=== PATIENT | male | born 1950 | race Caucasian/White ===

== ENCOUNTER 2018-09-03 22:51 | Inpatient (IN) | payer MEDICARE, OTHER ==
[~2018-09-03] VITALS: Ht 185.4 cm; Wt 88.5 kg
[2018-09-03] MEDS ORDERED: GLUC1KIT IJ (23:26)
[2018-09-03] MEDS ORDERED: ASPI81TA31 PO (23:26)
[2018-09-03] MEDS ORDERED: NICO-672 TD (23:26)
[2018-09-03] MEDS ORDERED: ENOX40DI SQ (23:26)
[2018-09-03] MEDS ORDERED: CARV3.122 PO (23:26)
[2018-09-03] MEDS ORDERED: ALBU2.5V38 IH (23:26)
[2018-09-03] MEDS ORDERED: ACET-2154 PO (23:26)
[2018-09-03] MEDS ORDERED: HYDR-3326 PO (23:26)
[2018-09-03] MEDS ORDERED: INSU100I19 SQ (23:26)
[2018-09-03] MEDS ORDERED: DEXT38GE12 PO (23:26)
[2018-09-03] MEDS ORDERED: ATOR20TA PO (23:26)
[2018-09-03] MEDS ORDERED: [UNRECOGNIZED DRUG - CODE] IV (23:26)
[2018-09-03] MEDS ORDERED: LORA1TAB PO (23:26)
[2018-09-03] MEDS ORDERED: INSU100I14 SQ ×2 (23:26)
[2018-09-03] MEDS ORDERED: MAG HYDROX/AL HYDROX/SIMETH 30 ML LIQUID UDC PO PRN (23:45)
[2018-09-03] MEDS ORDERED: MAGNESIUM HYDROXIDE 30 ML LIQUID UDC PO PRN (23:45)
[2018-09-03] MEDS ORDERED: INSULIN REGULAR, HUMAN 300 UNIT/3 ML VIAL ONE (23:56)
[2018-09-04] MEDS ORDERED: INSULIN REGULAR, HUMAN 300 UNIT/3 ML VIAL SQ ONE
[2018-09-04 00:20] VITALS: BP 149/86
[2018-09-04] MEDS ORDERED: ZOLPIDEM 5 MG TABLET PO PRN (01:15)
[2018-09-04] MEDS: LORAZEPAM 0.5 MG TABLET PO PRN ×2 (02:25→16:19)
[2018-09-04 02:46] LABS: *BILIRUBIN,URIN NEGATIVE (NEGATIVE); *CLARITY,URINE CLEAR (CLEAR); *COLOR,URINE YELLOW (YELLOW); *KETONES,URINE NEGATIVE (NEGATIVE); LEUKOCYTE ESTERASE ,URINE NEGATIVE (NEGATIVE); NITRITE, URINE NEGATIVE (NEGATIVE); PH,URINE 5.5 (5.0-8.0); UGLUCOSE NEGATIVE (NEGATIVE)
[2018-09-04 02:54] LABS: *BLOOD, URINE TRACE (NEGATIVE)
[2018-09-04 02:55] LABS: BACTERIA,URINE NONE SEEN /HPF (NONE SEEN); SQUAMOUS EPITHELIAL CELL,UR FEW /HPF (NONE SEEN); WBC,URINE 0-3 /HPF (0-3)
[2018-09-04] MEDS ORDERED: DEXTROSE 50% 50 ML DISP.SYRIN IV PRN (06:45)
[2018-09-04] MEDS ORDERED: HYDROCODONE/APAP 5-325MG TABLET PO PRN (06:45)
[2018-09-04] MEDS: BLOOD SUGAR DIAGNOSTIC 1 EACH STRIP VI SCH ×4 (06:50→20:50)
[2018-09-04 07:08] LABS: CREATININE 1.1 mg/dL (0.6-1.3); POTASSIUM 5.1 mmol/L (3.5-5.1)
[2018-09-04 07:30] VITALS: BP 128/70
[2018-09-04 07:39] LABS: BILIRUBIN,TOTAL 0.6 mg/dL (0.2-1.0); MAGNESIUM 1.9 mg/dL (1.8-2.4); PHOSPHOROUS 3.7 mg/dL (2.5-4.9); TOTAL PROTEIN, SERUM 6.8 g/dL (6.4-8.2)
[2018-09-04] MEDS: INSULIN REGULAR, HUMAN 300 UNIT/3 ML VIAL SQ PRN ×3 (08:47→20:51)
[2018-09-04 09:00] LABS: BASOPHILS % (AUTO) 0.3 % (0.0-2.0); EOSINOPHILS # (AUTO) 0.7 K/uL (0.0-0.7); HEMATOCRIT 29.9 % (36.7-47.1); HEMOGLOBIN 9.9 g/dL (12.5-16.3); LYMPHOCYTES # (AUTO) 2.6 K/uL (20.0-40.0); LYMPHOCYTES % (AUTO) 32.2 % (20.5-51.5); MEAN CORPUSCULAR HEMOGLOBIN 28.5 uug (23.8-33.4); MEAN CORPUSCULAR HGB CONC 33 g/dL (32.5-36.3); MONOCYTES # (AUTO) 0.9 K/uL (2.0-10.0); MONOCYTES % (AUTO) 11.6 % (0.0-11.0); NEUTROPHILS # (AUTO) 3.7 K/uL (1.8-8.9); NEUTROPHILS % (AUTO) 46.9 % (38.5-71.5); PLATELET COUNT (AUTO) 225 K/uL (152-348); RED BLOOD CELL COUNT(AUTO) 3.48 MIL/uL (4.06-5.63)
[2018-09-04] MEDS ORDERED: NICOTINE 21 MG/24HR PATCH TD SCH (09:00)
[2018-09-04] MEDS: LISINOPRIL 5 MG TABLET PO SCH (09:20)
[2018-09-04] MEDS: ASPIRIN 81 MG TAB.CHEW PO SCH (09:20)
[2018-09-04] MEDS: NICOTINE 14 MG/24HR PATCH TD SCH (09:21)
[2018-09-04] MEDS: CARVEDILOL 3.125 MG TABLET PO SCH ×2 (09:21→17:03)
[2018-09-04] MEDS: INSULIN DETEMIR 300 UNIT/3 ML CARTRIDGE SQ SCH ×2 (09:23→20:53)
[2018-09-04] MEDS: ESCITALOPRAM OXALATE 10 MG TABLET PO SCH (13:58)
[2018-09-04 16:48] VITALS: BP 134/72
[2018-09-04] MEDS: ALBUTEROL SULFATE 2.5 MG/3 ML NEBU NEB PRN ×2 (19:10→22:31)
[2018-09-04 20:00] VITALS: BP 135/66
[2018-09-04] MEDS: QUETIAPINE FUMARATE 25 MG TABLET PO SCH (20:33)
[2018-09-04] MEDS: ATORVASTATIN 20 MG TABLET PO SCH (20:35)
[2018-09-05] MEDS: LORAZEPAM 0.5 MG TABLET PO PRN ×2 (00:50→22:24)
[2018-09-05] MEDS: BLOOD SUGAR DIAGNOSTIC 1 EACH STRIP VI SCH ×4 (06:31→20:39)
[2018-09-05 07:30] VITALS: BP 118/55
[2018-09-05] MEDS ORDERED: INSULIN LISPRO 300 UNIT/3 ML VIAL SQ SCH (07:30)
[2018-09-05] MEDS: ESCITALOPRAM OXALATE 10 MG TABLET PO SCH (08:49)
[2018-09-05] MEDS: LISINOPRIL 5 MG TABLET PO SCH (08:50)
[2018-09-05] MEDS: ASPIRIN 81 MG TAB.CHEW PO SCH (08:50)
[2018-09-05] MEDS: CARVEDILOL 3.125 MG TABLET PO SCH ×2 (08:50→17:03)
[2018-09-05] MEDS: NICOTINE 14 MG/24HR PATCH TD SCH (08:50)
[2018-09-05] MEDS: INSULIN DETEMIR 300 UNIT/3 ML CARTRIDGE SQ SCH ×2 (08:55→20:34)
[2018-09-05] MEDS: INSULIN REGULAR, HUMAN 300 UNIT/3 ML VIAL SQ PRN ×3 (11:32→20:35)
[2018-09-05] MEDS: INSULIN REGULAR, HUMAN 300 UNIT/3 ML VIAL SQ SCH ×2 (11:34→16:46)
[2018-09-05] MEDS: HYDROCODONE/APAP 10-325 MG TABLET PO PRN ×2 (12:40→20:38)
[2018-09-05] MEDS: ONDANSETRON ODT 4 MG TAB.RAPDIS SL PRN ×2 (12:40→22:46)
[2018-09-05 16:45] VITALS: BP 121/62
[2018-09-05 20:04] VITALS: BP 129/72
[2018-09-05] MEDS: QUETIAPINE FUMARATE 25 MG TABLET PO SCH (20:32)
[2018-09-05] MEDS: ATORVASTATIN 20 MG TABLET PO SCH (20:53)
[2018-09-06] MEDS: BLOOD SUGAR DIAGNOSTIC 1 EACH STRIP VI SCH ×4 (06:43→20:26)
[2018-09-06] MEDS: INSULIN REGULAR, HUMAN 300 UNIT/3 ML VIAL SQ SCH ×3 (07:14→16:53)
[2018-09-06 07:30] VITALS: BP 133/75
[2018-09-06] MEDS: LISINOPRIL 5 MG TABLET PO SCH (08:34)
[2018-09-06] MEDS: CARVEDILOL 3.125 MG TABLET PO SCH ×2 (08:35→17:26)
[2018-09-06] MEDS: ESCITALOPRAM OXALATE 10 MG TABLET PO SCH (08:35)
[2018-09-06] MEDS: ASPIRIN 81 MG TAB.CHEW PO SCH (08:35)
[2018-09-06] MEDS: NICOTINE 14 MG/24HR PATCH TD SCH (08:35)
[2018-09-06] MEDS: INSULIN DETEMIR 300 UNIT/3 ML CARTRIDGE SQ SCH ×2 (08:37→20:24)
[2018-09-06] MEDS ORDERED: DULOXETINE 60 MG CAPSULE.DR PO SCH (09:00)
[2018-09-06] MEDS: DULOXETINE 30 MG CAPSULE.DR PO SCH (09:58)
[2018-09-06] MEDS: INSULIN REGULAR, HUMAN 300 UNIT/3 ML VIAL SQ PRN ×3 (12:02→20:23)
[2018-09-06] MEDS: LORAZEPAM 0.5 MG TABLET PO PRN ×2 (12:31→22:50)
[2018-09-06 15:35] VITALS: BP 132/74
[2018-09-06 19:54] VITALS: BP 122/77
[2018-09-06] MEDS: ONDANSETRON ODT 4 MG TAB.RAPDIS SL PRN (19:55)
[2018-09-06] MEDS: HYDROCODONE/APAP 10-325 MG TABLET PO PRN (19:55)
[2018-09-06] MEDS: ATORVASTATIN 20 MG TABLET PO SCH (20:39)
[2018-09-06] MEDS: QUETIAPINE FUMARATE 25 MG TABLET PO SCH (21:19)
[2018-09-06] MEDS: ACETAMINOPHEN 325 MG TABLET PO PRN (22:50)
[2018-09-07] MEDS: BLOOD SUGAR DIAGNOSTIC 1 EACH STRIP VI SCH ×5 (06:22→20:25)
[2018-09-07 07:30] VITALS: BP 132/76
[2018-09-07] MEDS: INSULIN REGULAR, HUMAN 300 UNIT/3 ML VIAL SQ SCH ×3 (07:30→16:44)
[2018-09-07] MEDS ORDERED: INSULIN DETEMIR 300 UNIT/3 ML CARTRIDGE SQ SCH ×2 (09:15→21:00)
[2018-09-07] MEDS: NICOTINE 14 MG/24HR PATCH TD SCH (09:36)
[2018-09-07] MEDS: DULOXETINE 30 MG CAPSULE.DR PO SCH (09:36)
[2018-09-07] MEDS: LISINOPRIL 5 MG TABLET PO SCH (09:36)
[2018-09-07] MEDS: ASPIRIN 81 MG TAB.CHEW PO SCH (09:36)
[2018-09-07] MEDS: CARVEDILOL 3.125 MG TABLET PO SCH ×2 (09:37→17:32)
[2018-09-07] MEDS: INSULIN DETEMIR 300 UNIT/3 ML CARTRIDGE SQ SCH (09:38)
[2018-09-07] MEDS: INSULIN REGULAR, HUMAN 300 UNIT/3 ML VIAL SQ PRN ×3 (11:51→20:31)
[2018-09-07] MEDS: ONDANSETRON ODT 4 MG TAB.RAPDIS SL PRN ×2 (12:17→18:28)
[2018-09-07] MEDS: HYDROCODONE/APAP 10-325 MG TABLET PO PRN (12:18)
[2018-09-07 15:52] VITALS: BP 140/75
[2018-09-07] MEDS: LORAZEPAM 0.5 MG TABLET PO PRN (18:28)
[2018-09-07] MEDS: SIMVASTATIN 20 MG TABLET PO SCH (20:20)
[2018-09-07] MEDS: QUETIAPINE FUMARATE 25 MG TABLET PO SCH (20:20)
[2018-09-07] MEDS ORDERED: SIMVASTATIN 20 MG TABLET PO SCH (21:00)
[2018-09-07] MEDS: ACETAMINOPHEN 325 MG TABLET PO PRN (21:08)
[2018-09-08] MEDS: BLOOD SUGAR DIAGNOSTIC 1 EACH STRIP VI SCH ×4 (06:55→21:14)
[2018-09-08 07:30] VITALS: BP 141/71
[2018-09-08] MEDS: INSULIN REGULAR, HUMAN 300 UNIT/3 ML VIAL SQ SCH ×3 (07:30→17:38)
[2018-09-08 08:22] VITALS: BP 141/71
[2018-09-08] MEDS: ASPIRIN 81 MG TAB.CHEW PO SCH (09:01)
[2018-09-08] MEDS: DULOXETINE 30 MG CAPSULE.DR PO SCH (09:01)
[2018-09-08] MEDS: CARVEDILOL 3.125 MG TABLET PO SCH ×2 (09:01→18:00)
[2018-09-08] MEDS: NICOTINE 14 MG/24HR PATCH TD SCH (09:02)
[2018-09-08] MEDS: LISINOPRIL 5 MG TABLET PO SCH (09:02)
[2018-09-08] MEDS: INSULIN DETEMIR 300 UNIT/3 ML CARTRIDGE SQ SCH ×2 (09:06→21:19)
[2018-09-08] MEDS: GUAIFENESIN LA 600 MG TABLET.SA PO SCH ×2 (10:26→21:07)
[2018-09-08] MEDS: INSULIN REGULAR, HUMAN 300 UNIT/3 ML VIAL SQ PRN ×2 (12:15→17:40)
[2018-09-08 16:00] VITALS: BP 116/56
[2018-09-08 20:51] VITALS: BP 142/77
[2018-09-08] MEDS: QUETIAPINE FUMARATE 25 MG TABLET PO SCH (21:06)
[2018-09-08] MEDS: SIMVASTATIN 20 MG TABLET PO SCH (21:07)
[2018-09-09] MEDS: BLOOD SUGAR DIAGNOSTIC 1 EACH STRIP VI SCH ×4 (06:30→20:56)
[2018-09-09 07:30] VITALS: BP_SYST 112; BP_SYST 129; BP_DIAS 61; BP_DIAS 70
[2018-09-09] MEDS: DULOXETINE 30 MG CAPSULE.DR PO SCH (08:57)
[2018-09-09] MEDS: CARVEDILOL 3.125 MG TABLET PO SCH ×2 (09:02→17:05)
[2018-09-09] MEDS: ASPIRIN 81 MG TAB.CHEW PO SCH (09:04)
[2018-09-09] MEDS: GUAIFENESIN LA 600 MG TABLET.SA PO SCH ×2 (09:04→20:56)
[2018-09-09] MEDS: NICOTINE 14 MG/24HR PATCH TD SCH (09:05)
[2018-09-09] MEDS: LISINOPRIL 5 MG TABLET PO SCH (09:05)
[2018-09-09] MEDS: INSULIN REGULAR, HUMAN 300 UNIT/3 ML VIAL SQ SCH ×3 (09:07→16:47)
[2018-09-09] MEDS: INSULIN REGULAR, HUMAN 300 UNIT/3 ML VIAL SQ PRN ×3 (09:09→16:45)
[2018-09-09] MEDS: ONDANSETRON ODT 4 MG TAB.RAPDIS SL PRN ×2 (10:37→20:37)
[2018-09-09] MEDS: HYDROCODONE/APAP 10-325 MG TABLET PO PRN ×2 (10:37→20:37)
[2018-09-09] MEDS: INSULIN DETEMIR 300 UNIT/3 ML CARTRIDGE SQ SCH ×2 (10:49→21:03)
[2018-09-09] MEDS: GABAPENTIN 300 MG CAPSULE PO SCH (16:56)
[2018-09-09 20:00] VITALS: BP 128/71
[2018-09-09] MEDS: QUETIAPINE FUMARATE 25 MG TABLET PO SCH (20:38)
[2018-09-09] MEDS: SIMVASTATIN 20 MG TABLET PO SCH (20:38)
[2018-09-10] MEDS: BLOOD SUGAR DIAGNOSTIC 1 EACH STRIP VI SCH ×4 (06:21→20:27)
[2018-09-10 07:30] VITALS: BP 124/75
[2018-09-10] MEDS: INSULIN REGULAR, HUMAN 300 UNIT/3 ML VIAL SQ SCH ×3 (07:30→17:39)
[2018-09-10] MEDS: ASPIRIN 81 MG TAB.CHEW PO SCH (09:25)
[2018-09-10] MEDS: DULOXETINE 30 MG CAPSULE.DR PO SCH (09:26)
[2018-09-10] MEDS: CARVEDILOL 3.125 MG TABLET PO SCH ×2 (09:26→17:41)
[2018-09-10] MEDS: GABAPENTIN 300 MG CAPSULE PO SCH ×3 (09:26→17:41)
[2018-09-10] MEDS: GUAIFENESIN LA 600 MG TABLET.SA PO SCH ×2 (09:27→20:23)
[2018-09-10] MEDS: INSULIN DETEMIR 300 UNIT/3 ML CARTRIDGE SQ SCH ×2 (09:34→20:30)
[2018-09-10] MEDS: LISINOPRIL 5 MG TABLET PO SCH (09:38)
[2018-09-10] MEDS: NICOTINE 14 MG/24HR PATCH TD SCH (09:38)
[2018-09-10] MEDS: INSULIN REGULAR, HUMAN 300 UNIT/3 ML VIAL SQ PRN ×2 (12:22→20:34)
[2018-09-10 16:00] VITALS: BP 115/71
[2018-09-10 20:00] VITALS: BP 125/71
[2018-09-10] MEDS: ONDANSETRON ODT 4 MG TAB.RAPDIS SL PRN (20:22)
[2018-09-10] MEDS: HYDROCODONE/APAP 10-325 MG TABLET PO PRN (20:23)
[2018-09-10] MEDS: SIMVASTATIN 20 MG TABLET PO SCH (20:23)
[2018-09-10] MEDS: QUETIAPINE FUMARATE 25 MG TABLET PO SCH (21:26)
[2018-09-10] MEDS: HYDROXYZINE PAMOATE 25 MG CAPSULE PO PRN (23:01)
[2018-09-11] MEDS: BLOOD SUGAR DIAGNOSTIC 1 EACH STRIP VI SCH ×4 (06:31→20:51)
[2018-09-11 07:30] VITALS: BP 115/60
[2018-09-11] MEDS: INSULIN REGULAR, HUMAN 300 UNIT/3 ML VIAL SQ SCH ×3 (08:41→16:43)
[2018-09-11] MEDS: NICOTINE 14 MG/24HR PATCH TD SCH (08:46)
[2018-09-11] MEDS: DULOXETINE 30 MG CAPSULE.DR PO SCH (08:46)
[2018-09-11] MEDS: LISINOPRIL 5 MG TABLET PO SCH (08:46)
[2018-09-11] MEDS: GUAIFENESIN LA 600 MG TABLET.SA PO SCH ×2 (08:46→20:50)
[2018-09-11] MEDS: INSULIN DETEMIR 300 UNIT/3 ML CARTRIDGE SQ SCH ×2 (08:46→21:00)
[2018-09-11] MEDS: GABAPENTIN 300 MG CAPSULE PO SCH ×3 (08:46→17:37)
[2018-09-11] MEDS: CARVEDILOL 3.125 MG TABLET PO SCH ×2 (08:47→17:37)
[2018-09-11] MEDS: ASPIRIN 81 MG TAB.CHEW PO SCH (08:47)
[2018-09-11] MEDS: ALBUTEROL SULFATE 2.5 MG/3 ML NEBU NEB PRN (12:26)
[2018-09-11] MEDS: INSULIN REGULAR, HUMAN 300 UNIT/3 ML VIAL SQ PRN ×2 (12:49→16:43)
[2018-09-11] MEDS: HYDROCODONE/APAP 10-325 MG TABLET PO PRN (15:37)
[2018-09-11] MEDS: ONDANSETRON ODT 4 MG TAB.RAPDIS SL PRN (15:37)
[2018-09-11 15:55] VITALS: BP 145/85
[2018-09-11] MEDS: SIMVASTATIN 20 MG TABLET PO SCH (20:50)
[2018-09-11] MEDS: QUETIAPINE FUMARATE 25 MG TABLET PO SCH (20:50)
[2018-09-11 21:09] VITALS: BP 132/75
[2018-09-12] MEDS: ONDANSETRON ODT 4 MG TAB.RAPDIS SL PRN ×2 (03:34→19:05)
[2018-09-12] MEDS: HYDROCODONE/APAP 10-325 MG TABLET PO PRN ×2 (03:34→19:04)
[2018-09-12] MEDS: HYDROXYZINE PAMOATE 25 MG CAPSULE PO PRN ×2 (04:21→21:45)
[2018-09-12] MEDS: BLOOD SUGAR DIAGNOSTIC 1 EACH STRIP VI SCH ×4 (07:08→21:03)
[2018-09-12 07:30] VITALS: BP 136/76
[2018-09-12] MEDS: NICOTINE 14 MG/24HR PATCH TD SCH (08:34)
[2018-09-12] MEDS: GUAIFENESIN LA 600 MG TABLET.SA PO SCH ×2 (08:35→20:55)
[2018-09-12] MEDS: ASPIRIN 81 MG TAB.CHEW PO SCH (08:35)
[2018-09-12] MEDS: GABAPENTIN 300 MG CAPSULE PO SCH ×3 (08:35→17:45)
[2018-09-12] MEDS: DULOXETINE 60 MG CAPSULE.DR PO SCH (08:36)
[2018-09-12] MEDS: INSULIN REGULAR, HUMAN 300 UNIT/3 ML VIAL SQ SCH ×3 (08:38→18:05)
[2018-09-12] MEDS: INSULIN REGULAR, HUMAN 300 UNIT/3 ML VIAL SQ PRN ×2 (08:41→21:06)
[2018-09-12] MEDS: CARVEDILOL 3.125 MG TABLET PO SCH ×2 (08:49→17:46)
[2018-09-12] MEDS: INSULIN DETEMIR 300 UNIT/3 ML CARTRIDGE SQ SCH ×2 (08:52→21:04)
[2018-09-12] MEDS: LISINOPRIL 5 MG TABLET PO SCH (08:55)
[2018-09-12 15:45] VITALS: BP 117/62
[2018-09-12 19:53] VITALS: BP 121/61
[2018-09-12] MEDS: QUETIAPINE FUMARATE 25 MG TABLET PO SCH (20:55)
[2018-09-12] MEDS: SIMVASTATIN 20 MG TABLET PO SCH (20:55)
[2018-09-13] MEDS: BLOOD SUGAR DIAGNOSTIC 1 EACH STRIP VI SCH ×4 (06:36→21:50)
[2018-09-13 07:30] VITALS: BP 115/69
[2018-09-13] MEDS: GABAPENTIN 300 MG CAPSULE PO SCH ×3 (08:14→17:18)
[2018-09-13] MEDS: ASPIRIN 81 MG TAB.CHEW PO SCH (08:14)
[2018-09-13] MEDS: DULOXETINE 60 MG CAPSULE.DR PO SCH (08:14)
[2018-09-13] MEDS: GUAIFENESIN LA 600 MG TABLET.SA PO SCH ×2 (08:15→22:05)
[2018-09-13] MEDS: LISINOPRIL 5 MG TABLET PO SCH (08:15)
[2018-09-13] MEDS: CARVEDILOL 3.125 MG TABLET PO SCH ×2 (08:16→17:17)
[2018-09-13] MEDS: NICOTINE 14 MG/24HR PATCH TD SCH (08:16)
[2018-09-13] MEDS: INSULIN DETEMIR 300 UNIT/3 ML CARTRIDGE SQ SCH ×2 (08:21→21:00)
[2018-09-13] MEDS: INSULIN REGULAR, HUMAN 300 UNIT/3 ML VIAL SQ SCH ×3 (08:22→17:19)
[2018-09-13] MEDS: INSULIN REGULAR, HUMAN 300 UNIT/3 ML VIAL SQ PRN ×3 (08:23→17:23)
[2018-09-13] MEDS: ONDANSETRON ODT 4 MG TAB.RAPDIS SL PRN (12:54)
[2018-09-13] MEDS: HYDROCODONE/APAP 10-325 MG TABLET PO PRN (12:54)
[2018-09-13 15:17] VITALS: BP 139/77
[2018-09-13] MEDS: ALBUTEROL SULFATE 2.5 MG/3 ML NEBU NEB PRN ×2 (16:37→20:11)
[2018-09-13 20:12] VITALS: BP 114/61
[2018-09-13] MEDS: QUETIAPINE FUMARATE 25 MG TABLET PO SCH (22:09)
[2018-09-13] MEDS: SIMVASTATIN 20 MG TABLET PO SCH (22:10)
[2018-09-13] MEDS: ACETAMINOPHEN 325 MG TABLET PO PRN (22:11)
[2018-09-14 07:30] VITALS: BP 115/64
[2018-09-14] MEDS: BLOOD SUGAR DIAGNOSTIC 1 EACH STRIP VI SCH (08:09)
[2018-09-14] MEDS: INSULIN REGULAR, HUMAN 300 UNIT/3 ML VIAL SQ SCH (08:35)
[2018-09-14] MEDS: GABAPENTIN 300 MG CAPSULE PO SCH (08:36)
[2018-09-14] MEDS: CARVEDILOL 3.125 MG TABLET PO SCH (08:37)
[2018-09-14] MEDS: ASPIRIN 81 MG TAB.CHEW PO SCH (08:37)
[2018-09-14] MEDS: NICOTINE 14 MG/24HR PATCH TD SCH (08:37)
[2018-09-14 08:38] VITALS: BP 115/64
[2018-09-14] MEDS: GUAIFENESIN LA 600 MG TABLET.SA PO SCH (08:38)
[2018-09-14] MEDS: LISINOPRIL 5 MG TABLET PO SCH (08:38)
[2018-09-14] MEDS: DULOXETINE 60 MG CAPSULE.DR PO SCH (09:07)
[2018-09-14] MEDS: INSULIN DETEMIR 300 UNIT/3 ML CARTRIDGE SQ SCH (09:11)
== END 2018-09-14 12:00 | disposition home or self-care (01) | DRG 885 ==
LOC: ER 22:53 → GPS 09-04 00:01
PROVIDERS: ADMIT Psychiatry & Neurology Psychiatry; ATTEND Nurse Practitioner Acute Care
DX: F33.3 Major depressive disorder, recurrent, severe with psychotic symptoms (principal); I11.0 Hypertensive heart disease with heart failure; E10.65 Type 1 diabetes mellitus with hyperglycemia; I42.9 Cardiomyopathy, unspecified; I50.22 Chronic systolic (congestive) heart failure; I25.10 Atherosclerotic heart disease of native coronary artery without angina pectoris; Z95.810 Presence of automatic (implantable) cardiac defibrillator; E78.5 Hyperlipidemia, unspecified; D64.9 Anemia, unspecified; Z95.5 Presence of coronary angioplasty implant and graft; Z87.891 Personal history of nicotine dependence; R74.0 Nonspecific elevation of levels of transaminase and lactic acid dehydrogenase [LDH]; Z79.899 Other long term (current) drug therapy; E78.00 Pure hypercholesterolemia, unspecified; M54.2 Cervicalgia
CPT/HCPCS: 36415; 71045; 82652; 83735; 84100; 85025; 87086; 93005; 94640; 94664; A4663; J1815; Q0162